=== PATIENT | female | born 1990 ===

== ENCOUNTER 2025-07-31 13:30 | Inpatient (IN) | payer OTHER ==
[~2025-07-31] VITALS: Ht 160 cm; Wt 69.9 kg
[2025-08-17] MEDS ORDERED: PRENATA CHEWAB1 EACH PO (14:49)
[2025-08-17] MEDS ORDERED: ADULT LOW DOSE81 M1 PO (14:49)
[2025-08-21] VITALS (7 sets, daily range): BP systolic 101–136; BP diastolic 67–80
[2025-08-21] MEDS ORDERED: RINGERS SOLUTION,LACTATED 1,000 ML IV SCH (05:30)
[2025-08-21 06:24] LABS: BASO % 0.2 % (0.1-1.2); EOS # 0.00 (0.04-0.54); EOS % 0.0 % (0.7-7.0); LYMPH # 1.06 (1.18-3.74); LYMPH % 7.4 % (19.3-53.1); MEAN PLATELET VOLUME 11.10 fl (9.4-12.4); MONO # 0.71 (0.24-0.82); MONO % 5.0 % (4.7-12.5); NEUT # 12.44 (1.56-6.13); NEUT % 86.9 % (34.0-71.1); RED CELL DISTRIBUTION WIDTH 12.5 % (11.6-14.4)
[2025-08-21 06:50] LABS: ALT/SGPT 25.0 U/L (12-78); AST/SGOT 20.0 U/L (15-37); BILIRUBIN TOTAL 0.52 mg/dL (0.3-1.2); BUN CREA RATIO 19.0 (7.0-25.0); CREATININE SERUM 0.58 mg/dL (0.55-1.02); GFR 118.3; GLOBULINA 3.9 G/DL (2.4-3.5); GLUCOSE FASTING 106.0 mg/dL (65-100); OSMOLALITY SERUM 268.0 MOSM/KG (275-295)
[2025-08-21] MEDS ORDERED: ERYTHROMYCIN BASE OPHT 1GM EACH TUBE OP ONE (08:11)
[2025-08-21] MEDS ORDERED: CHLORHEXIDINE GLUCONATE 120 ML BOTTLE TOP ONE (08:11)
[2025-08-21] MEDS ORDERED: OXYTOCIN 20 UNITS/1000ML RL PIGGYBAG IV ONE (08:11)
[2025-08-21] MEDS ORDERED: LIDOCAINE HCL 1% 10ML VIAL ONE (08:11)
[2025-08-21] MEDS ORDERED: OXYTOCIN 500 ML IV ONE (08:30)
[2025-08-21] MEDS ORDERED: MORPHINE SULFATE 4 MG/ML VIAL IV PRN (09:15)
[2025-08-21] MEDS ORDERED: CHLORHEXIDINE GLUCONATE 120 ML BOTTLE TOP SCH (13:30)
[2025-08-21] MEDS ORDERED: OXYTOCIN 1,000 ML IV SCH (13:30)
[2025-08-21] MEDS ORDERED: AMPICILLIN SODIUM 2,000 MG VIAL IV ONE (16:00)
[2025-08-21] MEDS ORDERED: DOCUSATE SODIUM 100MG CAP PO SCH (17:00)
[2025-08-22] VITALS: BP 96/60
[2025-08-22 07:34] LABS: BASO % 0.2 % (0.1-1.2); EOS # 0.04 (0.04-0.54); EOS % 0.3 % (0.7-7.0); LYMPH # 1.90 (1.18-3.74); LYMPH % 14.6 % (19.3-53.1); MEAN PLATELET VOLUME 10.80 fl (9.4-12.4); MONO # 1.07 (0.24-0.82); MONO % 8.2 % (4.7-12.5); NEUT # 9.85 (1.56-6.13); NEUT % 76.0 % (34.0-71.1); RED CELL DISTRIBUTION WIDTH 12.5 % (11.6-14.4)
[2025-08-22 08:00] VITALS: BP 108/72
[2025-08-22] MEDS ORDERED: PNV,CALCIUM 72/IRON/FOLIC ACID 1 TAB TABLET PO SCH (09:00)
[2025-08-22 17:00] VITALS: BP 109/69
[2025-08-23 02:16] VITALS: BP 99/63
[2025-08-23 09:42] VITALS: BP 114/67
== END 2025-08-23 16:07 | disposition home or self-care (01) | DRG 807 ==
LOC: OB/GYN 08-16 13:30 → LDR 08-21 05:15 → OB/GYN 08-21 13:55
PROVIDERS: Obstetrics & Gynecology; Obstetrics & Gynecology Gynecology; ADMIT Obstetrics & Gynecology; ATTEND Obstetrics & Gynecology
PROC: 10E0XZZ Delivery of Products of Conception, External Approach (ICD-10-PCS; principal; 2025-08-21)
PROC: 0UQG7ZZ Repair Vagina, Via Natural or Artificial Opening (ICD-10-PCS; 2025-08-21)
PROC: 4A1HXCZ Monitoring of Products of Conception, Cardiac Rate, External Approach (ICD-10-PCS; 2025-08-21)
DX: O71.4 Obstetric high vaginal laceration alone (principal); Z37.0 Single live birth; Z3A.38 38 weeks gestation of pregnancy

== ENCOUNTER 2025-08-12 12:14 | Outpatient (CLI) | payer OTHER | END 2025-08-12 13:11 | disposition home or self-care (01) | LOC: NST 12:14 | PROVIDERS: ATTEND Obstetrics & Gynecology Maternal & Fetal Medicine | DX: Z34.83 Encounter for supervision of other normal pregnancy, third trimester (principal) ==

== ENCOUNTER 2025-08-17 14:25 | Outpatient (CLI) | payer OTHER ==
[~2025-08-17] VITALS: Ht 160 cm; Wt 71.2 kg
[2025-08-17 13:42] VITALS: BP 121/78
[2025-08-17] MEDS ORDERED: ADULT LOW DOSE81 M1 PO (14:49)
[2025-08-17] MEDS ORDERED: PRENATA CHEWAB1 EACH PO (14:49)
[2025-08-17] MEDS ORDERED: RINGERS SOLUTION,LACTATED 1,000 ML IV SCH (15:00)
[2025-08-17 15:16] VITALS: BP 115/80
== END 2025-08-17 17:15 | disposition left against medical advice (07) ==
LOC: OBS/DEL 14:25
PROVIDERS: ATTEND Obstetrics & Gynecology Gynecology
DX: O36.8130 Decreased fetal movements, third trimester, not applicable or unspecified (principal)